=== PATIENT | male | born 1980 | race Caucasian/White ===

== ENCOUNTER 2025-02-05 09:57 | Day surgery (SDC) | payer OTHER, SELFPAY ==
[2025-01-29 09:38] VITALS: BMI 26.5
--- NOTE | 2025-02-04 12:39 | HO.ANESPROP2 ---
Documented by User: Yola Hutson NP 02/04/25 12:39 HPI - Anesthesia Eval Consult details Narrative: 45yo Mf or Bilateral / Medial Eye Muscle Recession/Resection Medically optimized per PCP [facility] Past Medical History Medical History History of fracture of clavicle Scoliosis Alcohol use Cannabis abuse Back pain Anxiety ADHD (attention deficit hyperactivity disorder) Depression Peptic ulcer Surgical History Surgical History Hx of umbilical hernia repair History of esophagogastroduodenoscopy (EGD) H/O colonoscopy History of back surgery Social History Social History (Updated 01/29/25 @ 09:36 by Sweta Banks RN) Patient Tobacco Use Status: Former Tobacco user Tobacco use type: Cigarette Use of substances other than those prescribed or required for medical reasons: Yes Substance Use Type: Marijuana Substance Use Type Other:: smoked and edibles--last used 02/04 Substance Use Frequency: Daily Are you DNR?: No Advance Directives: No Advance Directives Information Provided: Yes Meds Allergies Allergy/AdvReac Type Severity Reaction Status Date / Time penicillin V Allergy Unknown Unknown Verified 02/05/25 10:14 morphine Allergy Rash Verified 02/05/25 10:14 Home Medications ?Medication ?Instructions ?Recorded ?Confirmed ?Last Taken ?Type cetirizine 10 mg tablet 10 mg PO DAILY PRN Allergy Symptoms 01/29/25 02/05/25 Unknown History ibuprofen 400 mg tablet 400 mg PO Q6H PRN Pain 02/05/25 02/05/25 Unknown History Exam Height,Weight and Vital Signs: Height 6 ft 2.61 in Weight 95.2 kg Assessment and Plan Assessment Anesthesia Assessment: Chart Reviewed Documented by User: Laura Art MD 02/05/25 12:13 [facility] Past Medical History Medical History History of fracture of clavicle Scoliosis Alcohol use Cannabis abuse Back pain Anxiety ADHD (attention deficit hyperactivity disorder) Depression Peptic ulcer Family History Family history of problems with anesthesia: No Surgical History Surgical History Hx of umbilical hernia repair History of esophagogastroduodenoscopy (EGD) H/O colonoscopy History of back surgery History of Problems with Anesthesia: No Social History Social History (Updated 01/29/25 @ 09:36 by Sweta Banks RN) Patient Tobacco Use Status: Former Tobacco user Tobacco use type: Cigarette Use of substances other than those prescribed or required for medical reasons: Yes Substance Use Type: Marijuana Substance Use Type Other:: smoked and edibles--last used 02/04 Substance Use Frequency: Daily Are you DNR?: No Advance Directives: No Advance Directives Information Provided: Yes Meds Allergies Allergy/AdvReac Type Severity Reaction Status Date / Time penicillin V Allergy Unknown Unknown Verified 02/05/25 10:14 morphine Allergy Rash Verified 02/05/25 10:14 Home Medications ?Medication ?Instructions ?Recorded ?Confirmed ?Last Taken ?Type cetirizine 10 mg tablet 10 mg PO DAILY PRN Allergy Symptoms 01/29/25 02/05/25 Unknown History ibuprofen 400 mg tablet 400 mg PO Q6H PRN Pain 02/05/25 02/05/25 Unknown History Exam Airway Mallampati Class: II (front top teeth bonded) TM Dist: >3cm Neck ROM: Full Heart: rrr Lungs: cta Assessment and Plan Assessment Anesthesia Assessment: Anesthesia Plan Discussed Final Anesthetic Review Family History of Problems with Anesthesia: No History of Problems with Anesthesia: No NPO: Yes ASA Class: II Final Preanesthetic Review: No Changes in Pt Med Stat, Meds/Allgs Chart Reviewed and Consent Obtained/Reviewed Patient Risk: Low Procedure Risk: Intermediate Anesthetic Plan Anesthetic Plan: GA Disposition: Standard PACU
[2025-02-05 10:03] VITALS: BP 121/90; PULSE 53; RESP 15; TEMP 36.7; O2SAT 99
[2025-02-05 10:10] VITALS: BMI 26.9
[2025-02-05 13:14] VITALS: BP 118/70; PULSE 60; RESP 12; TEMP 36.2; O2SAT 98
[2025-02-05 13:19] VITALS: BP 116/72; PULSE 52; RESP 11; O2SAT 99
[2025-02-05 13:24] VITALS: BP 128/88; PULSE 73; RESP 16; O2SAT 98
[2025-02-05 13:29] VITALS: BP 127/85; PULSE 72; RESP 16; O2SAT 98
[2025-02-05 13:41] VITALS: BP 122/90; PULSE 57; RESP 14; TEMP 36.5; O2SAT 98
--- NOTE | 2025-02-05 15:36 | HO.OPHTHAL ---
Ophthalmology Operative Note Date of Service: 02/05/25 Narrative: Diagnosis esotropia. Postoperative diagnosis same. Procedure bilateral medial rectus recessions of [address] Sue. Anesthesia general. Complications none. The patient was brought to the operating room placed under general anesthesia. The eyes were prepped and draped in the usual sterile ophthalmic fashion. A lid speculum was placed in the right eye and incisions made down to bare sclera in the inferonasal fornix. The medial rectus was hooked and secured with a double-armed Vicryl suture. The muscle was disinserted from the globe and reattached to a position 5 mm behind the original insertion. Conjunctiva was closed with interrupted Vicryl sutures. An identical procedure was then performed on the left eye. The patient was then awoken from general anesthesia and discharged to postoperative recovery in good condition.
== END 2025-02-05 13:51 | disposition home or self-care (01) ==
PROVIDERS: PCP Internal Medicine; Visit Provider Ophthalmology
PROC: (CPT 67311; principal; 2025-02-05 12:00)
DX: H53.2 Diplopia (principal); F90.9 Attention-deficit hyperactivity disorder, unspecified type; M54.9 Dorsalgia, unspecified; F32.A Depression, unspecified; F41.9 Anxiety disorder, unspecified; B07.8 Other viral warts; Z87.11 Personal history of peptic ulcer disease; Z87.81 Personal history of (healed) traumatic fracture; M79.89 Other specified soft tissue disorders; F12.10 Cannabis abuse, uncomplicated; F10.90 Alcohol use, unspecified, uncomplicated; Z87.891 Personal history of nicotine dependence; Z98.890 Other specified postprocedural states
CPT/HCPCS: 67311; J1100; J1885; J2003; J2250; J2405; J2704; J3010